=== PATIENT | male | born 1935 | race Caucasian/White ===

== ENCOUNTER 2022-06-10 09:53 | Emergency (ER) | payer MEDICARE, OTHER ==
[~2022-06-10] VITALS: Ht 167.6 cm; Wt 88.2 kg
[2022-06-10] MEDS ORDERED: ROSU10TA6 (10:05)
[2022-06-10] MEDS ORDERED: ASPI81CH33 PO (10:05)
[2022-06-10] MEDS ORDERED: PANT40TA29 PO (10:05)
[2022-06-10] MEDS ORDERED: TAMS1CAP17 (10:05)
[2022-06-10] MEDS ORDERED: METO1TAB32 (10:05)
[2022-06-10 13:27] VITALS: BP 138/80
== END 2022-06-10 13:31 | disposition home or self-care (01) ==
LOC: M ED 09:53
DX: S00.03XA Contusion of scalp, initial encounter (principal); W01.0XXA Fall on same level from slipping, tripping and stumbling without subsequent striking against object, initial encounter; I10 Essential (primary) hypertension; E78.5 Hyperlipidemia, unspecified; Z86.79 Personal history of other diseases of the circulatory system; Z79.82 Long term (current) use of aspirin; Z79.899 Other long term (current) drug therapy